=== PATIENT | male | born 1960 ===

== ENCOUNTER 2022-01-24 12:05 | Observation (INO) | payer MEDICARE ==
[2022-01-24] MEDS ORDERED: ASPIRIN 81 MG PO STA (12:24)
--- NOTE | 2022-01-24 12:25 | ED ---
General Adult HPI - General Chief complaint: Chest Pain Stated complaint: chest pain Time Seen by Provider: 01/24/22 12:16 Source: patient, RN notes reviewed Mode of arrival: wheelchair Limitations: no limitations - History of Present Illness Initial comments: Patient is a pleasant 61-year-old male presenting to the emergency department with concerns with chest discomfort. Symptoms have been present for several weeks, worse the past couple of days. Sometimes symptoms are worse with exertion. Patient is starting to have associated dyspnea. No nausea. No diaphoresis. No history of similar symptoms previously. Discomfort feels like tightness currently rated 1/10. At the worst discomfort is 4/10. Patient denies radiation. Patient denies back pain. - Related Data Allergies Allergy/AdvReac Type Severity Reaction Status Date / Time No Known Allergies Allergy Verified 01/24/22 12:12 Review of Systems ROS Statement: Those systems with pertinent positive or pertinent negative responses have been documented in the HPI. ROS Other: All systems not noted in ROS Statement are negative. Constitutional: Denies: fever Eyes: Denies: eye pain ENT: Denies: ear pain Respiratory: Reports: as per HPI. Denies: cough Cardiovascular: Reports: as per HPI, chest pain Endocrine: Denies: fatigue Gastrointestinal: Denies: abdominal pain Genitourinary: Denies: dysuria Musculoskeletal: Denies: back pain Skin: Denies: rash Neurological: Denies: weakness Past Medical History Past Medical History: Diabetes Mellitus, Hypertension Additional Past Medical History / Comment(s): NEUROPATHY History of Any Multi-Drug Resistant Organisms: None Reported Past Surgical History: Hernia Repair Additional Past Surgical History / Comment(s): FOOT/ANKLE SURGERY, TIBIA FIBIA Past Psychological History: No Psychological Hx Reported Smoking Status: Former smoker Past Alcohol Use History: None Reported Past Drug Use History: None Reported General Exam Limitations: no limitations General appearance: alert, in no apparent distress Head exam: Present: normocephalic Eye exam: Present: normal appearance Neck exam: Present: normal inspection Respiratory exam: Present: normal lung sounds bilaterally. Absent: chest wall tenderness Cardiovascular Exam: Present: regular rate, normal rhythm Expanded Peripheral pulses: 2+: Radial (R), Radial (L), Posterior Tibialis (R), Posterior Tibialis (L) GI/Abdominal exam: Present: soft. Absent: tenderness Extremities exam: Present: normal inspection. Absent: pedal edema, calf tenderness Neurological exam: Present: alert Psychiatric exam: Present: normal affect, normal mood Skin exam: Present: normal color Course Vital Signs 01/24/22 12:07 Temperature 98 F Pulse Rate 64 Respiratory 16 Rate Blood Pressure 190/71 O2 Sat by Pulse 99 Oximetry EKG Findings - EKG Comments: EKG Findings:: Sinus rhythm rate 64. [place] 184. QRS 96. QT 420. QTc 429. Left axis. Normal QRS. No acute ST change. Medical Decision Making - Medical Decision Making Patient reevaluated and updated. Case discussed with Dr. Gr, who will admit covering hospital observation - Lab Data Result diagrams: 01/24/22 12:34 01/24/22 12:34 Lab Results 01/24/22 01/24/22 01/24/22 Range/Units 12:34 12:34 12:34 WBC 8.5 (3.8-10.6) k/uL RBC 4.00 L (4.30-5.90) m/uL Hgb 12.0 L (13.0-17.5) gm/dL Hct 34.4 L (39.0-53.0) % MCV 86.1 (80.0-100.0) fL MCH 29.9 (25.0-35.0) pg MCHC 34.7 (31.0-37.0) g/dL RDW 12.9 (11.5-15.5) % Plt Count 195 (150-450) k/uL MPV 9.7 Neutrophils % 58 % Lymphocytes % 32 % Monocytes % 4 % Eosinophils % 2 % Basophils % 1 % Neutrophils # 4.9 (1.3-7.7) k/uL Lymphocytes # 2.7 (1.0-4.8) k/uL Monocytes # 0.4 (0-1.0) k/uL Eosinophils # 0.2 (0-0.7) k/uL Basophils # 0.0 (0-0.2) k/uL Sodium 136 L (137-145) mmol/L Potassium 4.6 (3.5-5.1) mmol/L Chloride 103 (98-107) mmol/L Carbon Dioxide 20 L (22-30) mmol/L Anion Gap 13 mmol/L BUN 13 (9-20) mg/dL Creatinine 0.83 (0.66-1.25) mg/dL Est GFR (CKD-EPI)AfAm >90 (>60 ml/min/1.73 sqM) Est GFR (CKD-EPI)NonAf >90 (>60 ml/min/1.73 sqM) Glucose 246 H (74-99) mg/dL Calcium 9.5 (8.4-10.2) mg/dL Magnesium 1.5 L (1.6-2.3) mg/dL Total Bilirubin 0.4 (0.2-1.3) mg/dL AST 32 (17-59) U/L ALT 39 (4-49) U/L Alkaline Phosphatase 44 (38-126) U/L Troponin I <0.012 (0.000-0.034) ng/mL Total Protein 6.6 (6.3-8.2) g/dL Albumin 4.3 (3.5-5.0) g/dL Amylase 48 (30-110) U/L Lipase 131 (23-300) U/L - Radiology Data Radiology results: image reviewed Disposition Clinical Impression: Chest pain Disposition: ADMITTED IP TO THIS HOSP Is patient prescribed a controlled substance at d/c from ED?: No Referrals: Isidra Ashley MD [Primary Care Provider] - 1-2 days Time of Disposition: 13:23
[2022-01-24 13:02] LABS: ALT 39 U/L (4-49); AST 32 U/L (17-59); African American GFR (CKD) >90 (>60 ml/min/1.73 sqM); Albumin 4.3 g/dL (3.5-5.0); Alkaline Phosphatase 44 U/L (38-126); Amylase 48 U/L (30-110); Anion Gap 13 mmol/L; Blood Urea Nitrogen 13 mg/dL (9-20); Calcium 9.5 mg/dL (8.4-10.2); Carbon Dioxide 20 mmol/L (22-30); Chloride 103 mmol/L (98-107); Glucose 246 mg/dL (74-99); Lipase 131 U/L (23-300); Magnesium 1.5 mg/dL (1.6-2.3); Non-African American GFR(CKD) >90 (>60 ml/min/1.73 sqM); Potassium 4.6 mmol/L (3.5-5.1); Sodium 136 mmol/L (137-145); Total Bilirubin 0.4 mg/dL (0.2-1.3); Total Protein 6.6 g/dL (6.3-8.2)
[2022-01-24 13:03] LABS: Basophils % (A) 1 %; Eosinophils # (A) 0.2 k/uL (0-0.7); Eosinophils % (A) 2 %; HCT 34.4 % (39.0-53.0); Lymphocytes # (A) 2.7 k/uL (1.0-4.8); Lymphocytes % (A) 32 %; MCH 29.9 pg (25.0-35.0); MCHC 34.7 g/dL (31.0-37.0); MCV 86.1 fL (80.0-100.0); Mean Platelet Volume 9.7; Monocytes # (A) 0.4 k/uL (0-1.0); Monocytes % (A) 4 %; Neutrophils # (A) 4.9 k/uL (1.3-7.7); Neutrophils % (A) 58 %; Platelet Count 195 k/uL (150-450); RDW 12.9 % (11.5-15.5); WBC 8.5 k/uL (3.8-10.6)
[2022-01-24] MEDS ORDERED: NITROGLYCERIN SL TABS 0.4 MG TAB SUBLINGUAL PRN (13:19)
[2022-01-24] MEDS ORDERED: NALOXONE 0.4 MG/ML 1 ML VIAL IVP PRN (13:19)
[2022-01-24] MEDS ORDERED: ACETAMINOPHEN TAB 325 MG TAB PO PRN (13:19)
--- NOTE | 2022-01-24 13:23 | XR ---
EXAMINATION TYPE: XR chest 2V DATE OF EXAM: 01/24/2022 COMPARISON: NONE HISTORY: Shortness of breath TECHNIQUE: Frontal and lateral views of the chest are obtained. FINDINGS: Scattered senescent parenchymal changes noted. Hyperinflation compatible with COPD. No evidence for infiltrate. No evidence for atelectasis. Heart size is stable. Mediastinal structures are stable and grossly unremarkable. No evidence for hilar prominence. Degenerative changes dorsal spine. IMPRESSION: 1. No evidence for acute pulmonary disease.
[2022-01-24 13:26] LABS: INR 0.9 (<1.2); Partial Thromboplastin Time 23.2 sec (22.0-30.0); Prothrombin Time 9.8 sec (9.0-12.0)
[2022-01-24] MEDS ORDERED: MAGNESIUM OXIDE 400 MG TAB PO STA (13:34)
--- NOTE | 2022-01-24 14:33 | CT ---
EXAMINATION TYPE: CT angio chest DATE OF EXAM: 01/24/2022 COMPARISON: None HISTORY: PE CT DLP: 634.9 mGycm CONTRAST: CT chest with contrast and 3D reconstruction with MIP imaging is performed with IV Contrast, patient injected with 100 mL of Isovue 370. Contrast-enhanced CT of the chest was performed through the course of the pulmonary arteries with aiden g and mediastinal window settings submitted. 3D reconstruction with MIP imaging was also performed. PULMONARY ARTERIES: The pulmonary arteries and their major tributaries are patent. I do not see claudine dence for sizable filling defect to suggest pulmonary embolic process. LUNGS: The lungs are clear and free of infiltrate. No evidence for atelectasis. No pulmonary nodule or mass is detected. No pleural effusion. MEDIASTINUM: Thoracic aorta is of normal caliber,however, evaluation is limited given timing of the contrast bolus. If there is concern for thoracic aortic pathology consider SOWMYA. Correlate clinicall y . The heart is not enlarged. No evidence for mediastinal mass. No mediastinal lymph nodes greater than 1cm. HILAR STRUCTURES: No evidence for mass. No hilar lymph nodes greater than 1 cm. UPPER ABDOMEN: No significant abnormality is seen. IMPRESSION: 1. No evidence for Pulmonary embolism at this time.
--- NOTE | 2022-01-24 15:41 | P.HPIM ---
History of Present Illness H&P Date: 01/24/22 Chief Complaint: Chest pain 61-year-old man with a history of hypertension, ex-smoker, hyperlipidemia, diabetes type 2 with peripheral neuropathy, family history of heart disease in his father in his early 60s presented for evaluation chest pain. Patient says that the pain is sharp in nature and starts at the bottom of the left side of his chest and radiates upwards towards the top of his chest. It is not particularly worse with exertion or deep breathing, position or food intake. The pain started approximately 1 month ago and happens intermittently, but yesterday had gotten to the point where it was associated with shortness of breath as well. This concerned him and prompted him to come to the emergency room for further evaluation. Patient denies associated fevers, chills, nausea, vomiting, sweats, palpitations, syncope, presyncope, cough, dyspnea, abdominal pain, constipation, diarrhea, dysuria, dyschezia, numbness/weakness of extremities. In the emergency room, patient was afebrile, 190/71, heart rate 64, 99% on room air. Labs show mild anemia to 12.0. Chemistry show mild hyponatremia to 136, mild acidosis to 20. Glucose was elevated 246. Magnesium was low at 1.5. Initial troponin was less than 0.012. Coags were unremarkable. D-dimer is 0. 62. Chest x-ray shows no evidence pulmonary disease. Chest CTA shows no evidence for pulmonary embolism or cardiopulmonary pathology. EKG shows normal sinus rhythm with no evidence of ischemia. All Systems reviewed and pertinent positives and negatives noted in HPI, all other symptoms are negative Gen: in no apparent distress, resting comfortably in bed Eyes: PERRL, no scleral injection or icterus HENT: normocephalic, atraumatic, good hearing acuity, moist mucous membranes Neck: no tracheal deviation, full range of motion Resp: good air exchange, breathing comfortably with no accessory muscle use, no tactile fremitus, clear to auscultation bilaterally CVS: good distal perfusion x 4, no pitting edema, regular rate and rhythm GI: soft, no tenderness to palpation, periumbilical area, ND, no hepatosplenomegaly : no suprapubic tenderness, no CVAT, rodriguez catheter not present MSK: no clubbing, no cyanosis, no noted contractures of extremities Skin: no noted rashes, petechiae; temperature of skin is appropriate Neuro: moving all extremities without signs of weakness, CN II-XII intact Psych: cooperative, euthymic mood, insight and judgment intact Labs and imaging reviewed as above Assessment/plan: Chest pain Hypertensive urgency -Admit to observation, telemetry -Cardiology consult -Echo -Aspirin, statin, beta vikas -TSH, A1c, lipid panel -Trend troponins -EKG, nitro when necessary -Nothing by mouth at midnight for stress test versus angiogram depending on troponins, I will defer this to cardiology -Resume patient's home antihypertensives Hyperlipidemia Diabetes type 2 Peripheral neuropathy -Home medications reviewed and reconciled Patient is full code DVT prophylaxis with early ambulation Past Medical History Past Medical History: Diabetes Mellitus, Hypertension Additional Past Medical History / Comment(s): NEUROPATHY History of Any Multi-Drug Resistant Organisms: None Reported Past Surgical History: Hernia Repair Additional Past Surgical History / Comment(s): FOOT/ANKLE SURGERY, TIBIA FIBIA Past Psychological History: No Psychological Hx Reported Smoking Status: Former smoker Past Alcohol Use History: None Reported Past Drug Use History: None Reported Medications and Allergies Home Medications Medication Instructions Recorded Confirmed Type Aspirin EC [Ecotrin Low Dose] 81 mg PO DAILY 01/24/22 01/24/22 History Cetirizine HCl [Zyrtec] 10 mg PO DAILY 01/24/22 01/24/22 History Enalapril [Vasotec] 5 mg PO DAILY 01/24/22 01/24/22 History Ergocalciferol [Vitamin D2 (1250 1,250 mcg PO WE 01/24/22 01/24/22 History Mcg = 79141 Iu)] Ezetimibe [Zetia] 10 mg PO DAILY 01/24/22 01/24/22 History Famotidine [Pepcid] 20 mg PO DAILY 01/24/22 01/24/22 History Fenofibrate [Lofibra] 160 mg PO DAILY 01/24/22 01/24/22 History HYDROcodone/APAP 10-325MG [[place] 1 tab PO Q6H PRN 01/24/22 01/24/22 History 10-325] Losartan Potassium 100 mg PO DAILY 01/24/22 01/24/22 History Phenylephrine HCl [Sudafed PE] 10 mg PO BID 01/24/22 01/24/22 History Pregabalin [Lyrica] 150 mg PO BID 01/24/22 01/24/22 History Sildenafil Citrate [Viagra] 100 mg PO DAILY PRN 01/24/22 01/24/22 History amLODIPine [Norvasc] 5 mg PO DAILY 01/24/22 01/24/22 History glipiZIDE XL [Glucotrol Xl] 2.5 mg PO DAILY 01/24/22 01/24/22 History guaiFENesin 400 mg PO BID 01/24/22 01/24/22 History metFORMIN HCL [Glucophage] 1,000 mg PO DAILY 01/24/22 01/24/22 History metFORMIN HCL [Glucophage] 500 mg PO HS 01/24/22 01/24/22 History Allergies Allergy/AdvReac Type Severity Reaction Status Date / Time No Known Allergies Allergy Verified 01/24/22 13:30 Physical Exam Osteopathic Statement: *. No significant issues noted on an osteopathic structural exam other than those noted in the History and Physical/Consult. Vitals: Vital Signs Temp Pulse Resp BP Pulse Ox 01/24/22 12:07 98 F 64 16 190/71 99 Intake and Output 01/24/22 01/24/22 01/24/22 06:59 14:59 22:59 Other: Weight 111.13 kg Results CBC & Chem 7: 01/24/22 12:34 01/24/22 12:34 Labs: Abnormal Lab Results - Last 24 Hours (Table) 01/24/22 01/24/22 01/24/22 Range/Units 12:34 12:34 12:34 RBC 4.00 L (4.30-5.90) m/uL Hgb 12.0 L (13.0-17.5) gm/dL Hct 34.4 L (39.0-53.0) % D-Dimer 0.62 H (<0.60) mg/L FEU Sodium 136 L (137-145) mmol/L Carbon Dioxide 20 L (22-30) mmol/L Glucose 246 H (74-99) mg/dL Magnesium 1.5 L (1.6-2.3) mg/dL
[2022-01-24 17:37] LABS: Glucose,Whole Blood 253 mg/dL (70-110)
[2022-01-24] MEDS: INSULIN ASPART (NovoLOG) 100 UNIT/ML VIAL SQ SCH (17:54)
[2022-01-24] MEDS ORDERED: ATORVASTATIN 80 MG TAB PO SCH (21:00)
[2022-01-24] MEDS: METOPROLOL TARTRATE 12.5 MG TAB PO SCH (21:02)
[2022-01-24] MEDS: guaiFENesin 600 MG TABLET.ER PO SCH (21:02)
[2022-01-24] MEDS: PREGABALIN 75 MG CAP PO SCH (21:02)
[2022-01-24] MEDS: HYDROcodone/APAP 10-325MG 1 EACH TAB PO PRN (21:08)
[2022-01-25 08:14] LABS: Glucose,Whole Blood 189 mg/dL (70-110)
[2022-01-25] MEDS ORDERED: ALPRAZolam 0.5 MG TAB PO PRN (08:46)
[2022-01-25] MEDS ORDERED: NITROGLYCERIN SL TABS 0.4 MG TAB SUBLINGUAL PRN (08:46)
[2022-01-25] MEDS ORDERED: ASPIRIN 325 MG TAB PO STA (08:46)
[2022-01-25] MEDS ORDERED: ALPRAZolam 0.25 MG TAB PO PRN (08:46)
[2022-01-25] MEDS ORDERED: ATORVASTATIN 80 MG TAB PO STA (08:46)
[2022-01-25] MEDS: guaiFENesin 600 MG TABLET.ER PO SCH (08:59)
[2022-01-25] MEDS: PREGABALIN 75 MG CAP PO SCH (08:59)
[2022-01-25] MEDS ORDERED: EZETIMIBE 10 MG TAB PO SCH (09:00)
[2022-01-25] MEDS ORDERED: ASPIRIN 81 MG PO SCH (09:00)
[2022-01-25] MEDS ORDERED: LOSARTAN 50 MG TAB PO SCH (09:00)
[2022-01-25] MEDS ORDERED: FENOFIBRATE 160 MG TAB PO SCH (09:00)
[2022-01-25] MEDS ORDERED: SODIUM CHLORIDE 0.9% 1,000 ML in EMPTY BAG 1 BAG IV SCH (09:00)
[2022-01-25] MEDS: METOPROLOL TARTRATE 12.5 MG TAB PO SCH (09:00)
[2022-01-25] MEDS ORDERED: FAMOTIDINE 20 MG TAB PO SCH (09:00)
[2022-01-25] MEDS ORDERED: amLODIPine 5 MG TAB PO SCH (09:00)
[2022-01-25] MEDS: INSULIN ASPART (NovoLOG) 100 UNIT/ML VIAL SQ SCH ×2 (09:06→12:00)
--- NOTE | 2022-01-25 09:09 | P.CRDCN ---
History of Present Illness Consult date: 01/25/22 History of present illness: HISTORY OF PRESENT ILLNESS: This is a 61-year-old male with a past medical history significant for hypertension, hyperlipidemia, diabetes, neuropathy, and former nicotine dependence. 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 We have been asked to see the patient in consultation for chest pain. Patient examined at the bedside. Patient states he has been having chest pain for the past month or so. He states he had other priorities at the time so he did not have it checked out. He states the pain is both with exertion and without exertion. He states the pain will last for about 5 minutes at each episode and then slowly go away. He reports over the past couple days he had pain about 10 times per day. The pain began to radiate down his left arm. He also reports feeling SOB. He states about 20-25 years ago he had a stress test performed for chest pain which apparently was abnormal and he was taken for a cardiac cath. He reports his cath was normal and did not require any stenting. He reports a family history of premature CAD. * EKG reveals sinus mechanism. T wave inversions in inferior leads. * Chest xray negative for acute process * Chest CTA: Negative for pulmonary embolism * Laboratory data: WBC 8.5. Hemoglobin 12.0. Platelet count 195. D-dimer 0.62. Sodium 136. Potassium 4.6. BUN 13. Creatinine 0.83. Troponin negative 3. * Current home cardiac medications include Vasotec 5 mg daily, fenofibrate 160 mg daily, losartan 100 mg daily, amlodipine 5 mg daily, aspirin 81 mg daily REVIEW OF SYSTEMS: At the time of my exam: CONSTITUTIONAL: Denies fever or chills. HEENT: Denies blurred vision, vision changes, or eye pain. Denies hemoptysis CARDIOVASCULAR: Denies chest pain. Denies orthopnea. Denies PND. Denies palpitations RESPIRATORY: Denies shortness of breath. GASTROINTESTINAL: Denies abdominal pain. Denies nausea or vomiting. HEMATOLOGIC: Denies bleeding disorders. GENITOURINARY: Denies any blood in urine. SKIN: Denies pruitis. Denies rash. PHYSICAL EXAM: VITAL SIGNS: Reviewed. GENERAL: Well-developed in no acute distress. HEENT: Head is normocephalic. Pupils are equal, round. Sclerae anicteric. Mucous membranes of the mouth are moist. Neck supple. No JVD or thyromegaly LUNGS: Respirations even and unlabored. Lungs essentially clear to auscultation bilaterally. HEART: Regular rate and rhythm. S1 and S2 heard. ABDOMEN: Soft. Nondistended. Nontender. EXTREMITIES: Normal range of motion. No clubbing or cyanosis. Peripheral pulses intact. No lower extremity edema NEUROLOGIC: Awake and alert. Oriented x 3. ASSESSMENT: Unstable angina Hypertension Hyperlipidemia Diabetes Peripheral neuropathy Former nicotine dependence Family history of premature CAD PLAN: Obtain 2D echo to assess cardiac structure and function Resume home cardiac medications Patient to undergo cardiac cath today with Dr. Odonnell Further recommendations pending patient course Nurse practitioner note has been reviewed by physician. Signing provider agrees with the documented findings, assessment, and plan of care. Past Medical History Past Medical History: Diabetes Mellitus, Hypertension Additional Past Medical History / Comment(s): NEUROPATHY History of Any Multi-Drug Resistant Organisms: None Reported Past Surgical History: Hernia Repair Additional Past Surgical History / Comment(s): FOOT/ANKLE SURGERY, TIBIA FIBIA Past Psychological History: No Psychological Hx Reported Smoking Status: Former smoker Past Alcohol Use History: None Reported Past Drug Use History: None Reported Medications and Allergies Home Medications Medication Instructions Recorded Confirmed Type Aspirin EC [Ecotrin Low Dose] 81 mg PO DAILY 01/24/22 01/24/22 History Cetirizine HCl [Zyrtec] 10 mg PO DAILY 01/24/22 01/24/22 History Enalapril [Vasotec] 5 mg PO DAILY 01/24/22 01/24/22 History Ergocalciferol [Vitamin D2 (1250 1,250 mcg PO WE 01/24/22 01/24/22 History Mcg = 10000 Iu)] Ezetimibe [Zetia] 10 mg PO DAILY 01/24/22 01/24/22 History Famotidine [Pepcid] 20 mg PO DAILY 01/24/22 01/24/22 History Fenofibrate [Lofibra] 160 mg PO DAILY 01/24/22 01/24/22 History HYDROcodone/APAP 10-325MG [[place] 1 tab PO Q6H PRN 01/24/22 01/24/22 History 10-325] Losartan Potassium 100 mg PO DAILY 01/24/22 01/24/22 History Phenylephrine HCl [Sudafed PE] 10 mg PO BID 01/24/22 01/24/22 History Pregabalin [Lyrica] 150 mg PO BID 01/24/22 01/24/22 History Sildenafil Citrate [Viagra] 100 mg PO DAILY PRN 01/24/22 01/24/22 History amLODIPine [Norvasc] 5 mg PO DAILY 01/24/22 01/24/22 History glipiZIDE XL [Glucotrol Xl] 2.5 mg PO DAILY 01/24/22 01/24/22 History guaiFENesin 400 mg PO BID 01/24/22 01/24/22 History metFORMIN HCL [Glucophage] 1,000 mg PO DAILY 01/24/22 01/24/22 History metFORMIN HCL [Glucophage] 500 mg PO HS 01/24/22 01/24/22 History Allergies Allergy/AdvReac Type Severity Reaction Status Date / Time No Known Allergies Allergy Verified 01/24/22 13:30 Physical Exam Vitals: Vital Signs Temp Pulse Resp BP Pulse Ox 01/25/22 05:00 56 L 16 139/68 94 L 01/25/22 04:00 97.9 F 55 L 16 151/79 98 01/24/22 21:01 68 18 146/53 97 01/24/22 17:43 60 18 145/59 98 01/24/22 12:07 98 F 64 16 190/71 99 Results 01/24/22 12:34 01/24/22 12:34 Cardiac Enzymes 01/24/22 01/24/22 01/24/22 Range/Units 12:34 12:34 15:35 AST 32 (17-59) U/L Troponin I <0.012 <0.012 (0.000-0.034) ng/mL 01/24/22 Range/Units 18:18 AST (17-59) U/L Troponin I <0.012 (0.000-0.034) ng/mL Coagulation 01/24/22 Range/Units 12:34 PT 9.8 (9.0-12.0) sec APTT 23.2 (22.0-30.0) sec CBC 01/24/22 Range/Units 12:34 WBC 8.5 (3.8-10.6) k/uL RBC 4.00 L (4.30-5.90) m/uL Hgb 12.0 L (13.0-17.5) gm/dL Hct 34.4 L (39.0-53.0) % Plt Count 195 (150-450) k/uL Comprehensive Metabolic Panel 01/24/22 Range/Units 12:34 Sodium 136 L (137-145) mmol/L Potassium 4.6 (3.5-5.1) mmol/L Chloride 103 (98-107) mmol/L Carbon Dioxide 20 L (22-30) mmol/L BUN 13 (9-20) mg/dL Creatinine 0.83 (0.66-1.25) mg/dL Glucose 246 H (74-99) mg/dL Calcium 9.5 (8.4-10.2) mg/dL AST 32 (17-59) U/L ALT 39 (4-49) U/L Alkaline Phosphatase 44 (38-126) U/L Total Protein 6.6 (6.3-8.2) g/dL Albumin 4.3 (3.5-5.0) g/dL Current Medications Generic Name Dose Route Start Last Admin Trade Name Freq PRN Reason Stop Dose Admin Acetaminophen 650 mg 01/24/22 13:19 Acetaminophen Tab 325 Mg Tab PO Q6HR PRN Mild Pain or Fever > 100.5 Hydrocodone Bitart/Acetaminophen 1 each 01/24/22 15:37 01/24/22 21:08 Hydrocodone/Apap 10-325mg 1 Each Tab PO 1 each Q6H PRN Administration Moderate Pain Amlodipine Besylate 5 mg 01/25/22 09:00 Amlodipine 5 Mg Tab PO DAILY [facility] Aspirin 81 mg 01/25/22 09:00 Aspirin 81 Mg PO DAILY [facility] Atorvastatin Calcium 80 mg 01/24/22 21:00 01/24/22 21:02 Atorvastatin 80 Mg Tab PO 80 mg HS TANA Administration Ezetimibe 10 mg 01/25/22 09:00 Ezetimibe 10 Mg Tab PO DAILY [facility] Ergocalciferol 1,250 mcg 01/30/22 09:00 Ergocalciferol 1,250 Mcg (50,000 Iu) Capsule PO WE [facility] Famotidine 20 mg 01/25/22 09:00 Famotidine 20 Mg Tab PO DAILY [facility] Fenofibrate 160 mg 01/25/22 09:00 Fenofibrate 160 Mg Tab PO DAILY [facility] Guaifenesin 600 mg 01/24/22 21:00 01/24/22 21:02 Guaifenesin 600 Mg Tablet.Er PO 600 mg BID TANA Administration Insulin Aspart 0 unit 01/24/22 17:30 01/24/22 17:54 Insulin Aspart (Novolog) 100 Unit/Ml Vial SQ 100 unit AC-TID TANA Administration Protocol Losartan Potassium 100 mg 01/25/22 09:00 Losartan 50 Mg Tab PO DAILY TANA Metoprolol Tartrate 12.5 mg 01/24/22 21:00 01/24/22 21:02 Metoprolol Tartrate 12.5 Mg Tab PO 12.5 mg BID TANA Administration Naloxone HCl 0.2 mg 01/24/22 13:19 Naloxone 0.4 Mg/Ml 1 Ml Vial IVP Q2M PRN Opioid Reversal Nitroglycerin 0.4 mg 01/24/22 13:19 01/24/22 13:27 Nitroglycerin Sl Tabs 0.4 Mg Tab SUBLINGUAL 0.4 mg Q5M PRN Administration Chest Pain Pregabalin 150 mg 01/24/22 21:00 01/24/22 21:02 Pregabalin 75 Mg Cap PO 150 mg BID TANA Administration 01/24/22 12:34 01/24/22 12:34
[2022-01-25] MEDS: HYDROcodone/APAP 10-325MG 1 EACH TAB PO PRN (11:05)
[2022-01-25 11:36] LABS: Basophils # (A) 0.1 k/uL (0-0.2); Basophils % (A) 1 %; Eosinophils # (A) 0.2 k/uL (0-0.7); Eosinophils % (A) 2 %; HCT 35.9 % (39.0-53.0); HGB 12.1 gm/dL (13.0-17.5); Lymphocytes # (A) 2.4 k/uL (1.0-4.8); Lymphocytes % (A) 32 %; MCHC 33.8 g/dL (31.0-37.0); MCV 88.8 fL (80.0-100.0); Mean Platelet Volume 8.8; Monocytes # (A) 0.4 k/uL (0-1.0); Monocytes % (A) 5 %; Neutrophils # (A) 4.3 k/uL (1.3-7.7); Neutrophils % (A) 58 %; Platelet Count 183 k/uL (150-450); RBC 4.04 m/uL (4.30-5.90); RDW 12.5 % (11.5-15.5); WBC 7.5 k/uL (3.8-10.6)
[2022-01-25 11:50] LABS: African American GFR (CKD) >90 (>60 ml/min/1.73 sqM); Anion Gap 11 mmol/L; Blood Urea Nitrogen 13 mg/dL (9-20); Calcium 9.3 mg/dL (8.4-10.2); Carbon Dioxide 25 mmol/L (22-30); Chloride 103 mmol/L (98-107); Glucose 178 mg/dL (74-99); Magnesium 1.8 mg/dL (1.6-2.3); Non-African American GFR(CKD) 90 (>60 ml/min/1.73 sqM); Potassium 4.8 mmol/L (3.5-5.1); Sodium 139 mmol/L (137-145)
[2022-01-25 12:49] LABS: Glucose,Whole Blood 155 mg/dL (70-110)
[2022-01-25] MEDS ORDERED: VERAPAMIL 2.5 MG/ML 2 ML AMP ONE (12:54)
[2022-01-25] MEDS ORDERED: MIDAZOLAM 2 MG/2 ML VIAL IV ONE ×2 (13:11→13:14)
[2022-01-25] MEDS ORDERED: LIDOCAINE 1% INJ 10MG/ML (30 ML VIAL-PF) SQ ONE (13:11)
[2022-01-25] MEDS: VERAPAMIL SYRINGE (5 MG/10 ML) INTRAARTER ONE ×2 (13:12→13:26)
[2022-01-25] MEDS ORDERED: HEPARIN SODIUM 1,000 UN/ML (10ML VL) IV ONE (13:14)
[2022-01-25] MEDS ORDERED: HEPARIN SODIUM 1,000 UN/ML (10ML VL) ONE (13:14)
[2022-01-25] MEDS ORDERED: IV FLUID CONTINUATION 1,000 ML IV ONE (13:17)
[2022-01-25] MEDS ORDERED: IOPAMIDOL-370 125ML BTL INJ ONE (13:26)
[2022-01-25] MEDS ORDERED: RX INFO: IV CONTRAST WAS GIVEN 1 EACH MISC MISCELLANE PRN (13:33)
[2022-01-25] MEDS ORDERED: SODIUM CHLORIDE 0.9% 1,000 ML IV SCH (13:45)
[2022-01-25 14:12] VITALS: TEMP 97.9
--- NOTE | 2022-01-25 14:20 | P.DS ---
Providers Date of admission: 01/24/22 13:19 Expected date of discharge: 01/25/22 Attending physician: Pravin Paiz MD Consults: 01/24/22 13:19 Consult Physician Routine Consulting Provider: [facility] Consult Reason/Comments: Chest Pain Do you want consulting provider notified?: Yes Primary care physician: Isidra Ashley [facility] Course: Chest pain Hypertensive urgency Hyperlipidemia Diabetes type 2 Peripheral neuropathy 61-year-old man with a history of hypertension, ex-smoker, hyperlipidemia, diabetes type 2 with peripheral neuropathy, family history of heart disease in his father in his early 60s presented for evaluation chest pain. In the emergency room, patient was afebrile, 190/71, heart rate 64, 99% on room air. Labs show mild anemia to 12.0. Chemistry show mild hyponatremia to 136, mild acidosis to 20. Glucose was elevated 246. Magnesium was low at 1.5. Initial troponin was less than 0.012. Coags were unremarkable. D-dimer is 0.62. Chest x-ray shows no evidence pulmonary disease. Chest CTA shows no evidence for pulmonary embolism or cardiopulmonary pathology. EKG shows normal sinus rhythm with no evidence of ischemia. Patient seen by cardiology and underwent left heart catheterization due to numerous risk factors and suspected unstable angina. Patient underwent a right radial approach, and was noted to have clean coronary arteries. Patient was returned to his observation room where he underwent echocardiogram which is pending at the time of my discharge summary. Patient was subsequently deemed stable for discharge. On discharge medication reconciliation, his amlodipine was increased for increased blood pressures while in the hospital and he was prescribed atorvastatin per ASCVD guidelines. Patient will follow-up with primary care. Notably, at the time of the writing of this discharge summary and placement of discharge order, patient still required deflation of TR banding of right wrist. Provided no complications, patient will be discharged home. Gen: in no apparent distress, resting comfortably in bed Eyes: PERRL, no scleral injection or icterus HENT: normocephalic, atraumatic, good hearing acuity, moist mucous membranes Neck: no tracheal deviation, full range of motion Resp: good air exchange, breathing comfortably with no accessory muscle use, no tactile fremitus, clear to auscultation bilaterally CVS: good distal perfusion x 4, no pitting edema, regular rate and rhythm GI: soft, no tenderness to palpation, periumbilical area, ND, no hepatosplenomegaly : no suprapubic tenderness, no CVAT, rodriguez catheter not present MSK: no clubbing, no cyanosis, no noted contractures of extremities Skin: no noted rashes, petechiae; temperature of skin is appropriate Neuro: moving all extremities without signs of weakness, CN II-XII intact Psych: cooperative, euthymic mood, insight and judgment intact Patient Condition at Discharge: Good Plan - Discharge Summary New Discharge Prescriptions: New Atorvastatin [Lipitor] 40 mg PO HS #30 tab Acetaminophen Tab [Tylenol] 650 mg PO Q6HR PRN tab PRN Reason: Mild Pain Or Fever > 100.5 Continue Cetirizine HCl [Zyrtec] 10 mg PO DAILY Ergocalciferol [Vitamin D2 (1250 Mcg = 30543 Iu)] 1,250 mcg PO WE HYDROcodone/APAP 10-325MG [[place] 10-325] 1 tab PO Q6H PRN PRN Reason: Pain metFORMIN HCL [Glucophage] 500 mg PO HS metFORMIN HCL [Glucophage] 1,000 mg PO DAILY Sildenafil Citrate [Viagra] 100 mg PO DAILY PRN PRN Reason: e.d. Aspirin EC [Ecotrin Low Dose] 81 mg PO DAILY Ezetimibe [Zetia] 10 mg PO DAILY Famotidine [Pepcid] 20 mg PO DAILY Fenofibrate [Lofibra] 160 mg PO DAILY glipiZIDE XL [Glucotrol XL] 2.5 mg PO DAILY guaiFENesin 400 mg PO BID Losartan Potassium 100 mg PO DAILY Pregabalin [Lyrica] 150 mg PO BID Changed amLODIPine [Norvasc] 10 mg PO DAILY #60 tab Discontinued Enalapril [Vasotec] 5 mg PO DAILY Phenylephrine HCl [Sudafed PE] 10 mg PO BID Discharge Medication List Aspirin EC [Ecotrin Low Dose] 81 mg PO DAILY 01/24/22 [History] Cetirizine HCl [Zyrtec] 10 mg PO DAILY 01/24/22 [History] Ergocalciferol [Vitamin D2 (1250 Mcg = 85000 Iu)] 1,250 mcg PO WE 01/24/22 [History] Ezetimibe [Zetia] 10 mg PO DAILY 01/24/22 [History] Famotidine [Pepcid] 20 mg PO DAILY 01/24/22 [History] Fenofibrate [Lofibra] 160 mg PO DAILY 01/24/22 [History] HYDROcodone/APAP 10-325MG [[place] 10-325] 1 tab PO Q6H PRN 01/24/22 [History] Losartan Potassium 100 mg PO DAILY 01/24/22 [History] Pregabalin [Lyrica] 150 mg PO BID 01/24/22 [History] Sildenafil Citrate [Viagra] 100 mg PO DAILY PRN 01/24/22 [History] glipiZIDE XL [Glucotrol XL] 2.5 mg PO DAILY 01/24/22 [History] guaiFENesin 400 mg PO BID 01/24/22 [History] metFORMIN HCL [Glucophage] 1,000 mg PO DAILY 01/24/22 [History] metFORMIN HCL [Glucophage] 500 mg PO HS 01/24/22 [History] Acetaminophen Tab [Tylenol] 650 mg PO Q6HR PRN tab 01/25/22 [Rx] Atorvastatin [Lipitor] 40 mg PO HS #30 tab 01/25/22 [Rx] amLODIPine [Norvasc] 10 mg PO DAILY #60 tab 01/25/22 [Rx] Follow up Appointment(s)/Referral(s): Isidra Ashley MD [Primary Care Provider] - 1-2 days Discharge Disposition: HOME SELF-CARE
[2022-01-25 17:21] VITALS: BP 142/71; PULSE 59; RESP 18
--- NOTE | 2022-01-25 17:53 | CA ---
Transthoracic Echo Report Name: Uriel Kothari Age: 61 Gender: M : 1960 Exam Date: 01/25/2022 13:54 Exam Location: [place] [facility] Ht (in): 72 Wt (lb): 245 Ordering Physician: Pravin Paiz MD Attending/Referring Phys: Media Supervisor Chiara Butler RDCS Procedure CPT: Indications: Chest Pain Cardiac Hx: Technical Quality: Fair Contrast 1: Total Dose (mL): Contrast 2: Total Dose (mL): MEASUREMENTS (Male / Female) Normal Values 2D ECHO LV Diastolic Diameter PLAX 3.9 cm 4.2 - 5.9 / 3.9 - 5.3 cm LV Systolic Diameter PLAX 2.9 cm IVS Diastolic Thickness 1.6 cm 0.6 - 1.0 / 0.6 - 0.9 cm LVPW Diastolic Thickness 1.1 cm 0.6 - 1.0 / 0.6 - 0.9 cm LV Relative Wall Thickness 0.7 RV Internal Dim ED PLAX 2.9 cm LA Volume 44.9 cm??? 18 - 58 / 22 - 52 cm??? M-MODE Aortic Root Diameter MM 3.0 cm LA Systolic Diameter MM 4.1 cm LA Ao Ratio MM 1.4 AV Cusp Separation MM 1.7 cm DOPPLER AV Peak Velocity 99.9 cm/s AV Peak Gradient 4.0 mmHg MV Area PHT 2.1 cm??? Mitral E Point Velocity 84.3 cm/s Mitral A Point Velocity 59.2 cm/s Mitral E to A Ratio 1.4 MV Deceleration Time 354.8 ms MV E' Velocity 8.1 cm/s Mitral E to MV E' Ratio 10.4 TR Peak Velocity 125.8 cm/s TR Peak Gradient 6.3 mmHg Right Ventricular Systolic Press 11.3 mmHg FINDINGS Left Ventricle Moderately increased left ventricular wall thickness. Mildly impaired left ventricular systolic function with no obvious regional wall motion abnormalities. Left ventricular ejection fraction is estimated at 45-50% Right Ventricle Normal right ventricular size and function. Right Atrium Normal right atrial size. Left Atrium Normal left atrial size. No evidence for an atrial septal defect. Mitral Valve Structurally normal mitral valve. No evidence for mitral valve prolapse. No mitral stenosis. Trace mitral regurgitation. Mild mitral annular calcification. Aortic Valve Trileaflet aortic valve. Aortic valve sclerosis. No aortic stenosis. No aortic regurgitation. Tricuspid Valve Structurally normal tricuspid valve. Mild tricuspid regurgitation. Pulmonic Valve Trace pulmonic regurgitation. Pericardium No pericardial effusion. Aorta Normal size aortic root and proximal ascending aorta. CONCLUSIONS Mildly impaired LV function was EF between 45-50% Previewed by: Dr. Chas Odonnell MD (Electronically Signed) Final Date: 25 January 2022 17:53
--- NOTE | 2022-01-25 18:22 | P.PCN ---
Date of Procedure: 01/25/22 Operative Findings: CARDIAC CATHETERIZATION PERFORMING PHYSICIAN: Chas Odonnell MD, RPVI PROCEDURE PERFORMED: 1. Selective right and left coronary angiogram 2. Left heart catheterization INDICATION: This is a 61-year-old gentleman with diabetes and hypertension and dyslipidemia who presented to the hospital with a chest discomfort episodes concerning for unstable angina. In the light of that heart catheterization was advised COMPLICATION: None APPROACH: Right radial artery LEVEL OF SEDATION: Moderate with a sedation length of 15 minutes PROCEDURE DESCRIPTION: After obtaining an informed consent, the patient was brought to cardiac cathead operator. Local anesthesia was performed using lidocaine subcutaneously. The right radial artery was cannulated using Seldinger technique, the guidewire passed easily, following that we advanced a 5-Nepalese sheath dilator assembly, the wire and dilator were removed and sheath was flushed. Following that, 2 mg of verapamil along with 5000 unit heparin were given. Selective right and left coronary angiogram using a 6-Nepalese JR4 and JL 3.5 catheters. Following that we did left heart catheterization using 6-Nepalese pigtail catheter. The procedure was completed there was no complication. SELECTIVE CORONARY ANGIOGRAM: The right coronary artery: Is a large caliber vessel and a dominant vessel. The RCA has mild disease only. Distally bifurcates into PDA and PLV branches both appeared to be angiographically normal Left main: Is angiographically normal. Bifurcates into LCx and LAD The left circumflex: Is a large caliber vessel and nondominant vessel. The LCx has mild disease only. Gives rises into a large OM which appeared to be angiographically normal. The left anterior descending artery: The proximal LAD has mild disease only. The mid and distal LAD appears to be angiographically normal. The LAD does not reach the apex. HEMODYNAMICS: The LVEDP was about 20 mmHg was no significant gradient across aortic valve CONCLUSION: 1. Mild nonobstructive coronary artery disease 2. Mildly elevated left-sided filling pressure POSTPROCEDURE MANAGEMENT: Medical treatment and follow-up with the patient
[2022-01-25 21:59] LABS: Chol/HDL Ratio 5.76 Ratio; LDL Cholesterol,Calculated 110.8 mg/dL (0.0-131.0)
[2022-01-26] MEDS ORDERED: HEPARIN SODIUM,PORCINE 10,000 UNIT in SODIUM CHLORIDE 0.9% 1,000 ML IRRIGATION PRN (07:00)
[2022-01-26] MEDS ORDERED: HEPARIN SODIUM,PORCINE 2,500 UNIT in SODIUM CHLORIDE 0.9% 250 ML IRRIGATION PRN (07:00)
[2022-01-30] MEDS ORDERED: ERGOCALCIFEROL 1,250 MCG (50,000 IU) CAPSULE PO SCH (09:00)
== END 2022-01-25 17:45 | disposition home or self-care (01) ==
LOC: EC 12:05 → 6NMEDSUR 13:19
PROVIDERS: ADMIT Internal Medicine; ATTEND Internal Medicine
DX: I25.110 Atherosclerotic heart disease of native coronary artery with unstable angina pectoris (principal); I16.0 Hypertensive urgency; I10 Essential (primary) hypertension; E78.5 Hyperlipidemia, unspecified; E11.42 Type 2 diabetes mellitus with diabetic polyneuropathy; D64.9 Anemia, unspecified; E87.1 Hypo-osmolality and hyponatremia; E87.2 Acidosis; Z87.891 Personal history of nicotine dependence; Z79.82 Long term (current) use of aspirin; Z79.84 Long term (current) use of oral hypoglycemic drugs; Z79.899 Other long term (current) drug therapy; Z82.49 Family history of ischemic heart disease and other diseases of the circulatory system
CPT/HCPCS: 96372 ×2; 99285; 36415; 93005; 93306; 93458; 85379; 80061; 80053; 80048; 84443; 82150; 83690; 83735 ×2; 84484; 85025 ×2; 85610; 85730; 83036; 71046; 71275; G0378 ×2; J2250; J2001; J1644; Q9967 ×2

== ENCOUNTER → 2024-11-03 | Day surgery (SDC) | payer MEDICARE ==
[2024-11-03] MEDS: EMPTY BAG 1 BAG with SODIUM CHLORIDE 0.9% 1,000 ML IV ONE (06:13)
[2024-11-03] MEDS: IV FLUID CONTINUATION 1,000 ML IV ONE (06:13)
[2024-11-03 06:25] LABS: Glucose,Whole Blood 134 mg/dL (70-110)
[2024-11-03 06:25] LABS: Basophils # (A) 0.07 10*3/uL (0.00-0.10); Basophils % (A) 1.0 %; Eosinophils # (A) 0.14 10*3/uL (0.04-0.35); Eosinophils % (A) 2.0 %; HCT 31.1 % (39.6-50.0); HGB 10.7 g/dL (13.0-17.0); Lymphocytes # (A) 2.04 10*3/uL (0.90-5.00); Lymphocytes % (A) 29.5 %; MCH 30.3 pg (27.0-32.0); MCHC 34.4 g/dL (32.0-37.0); MCV 88.1 fL (80.0-97.0); Monocytes # (A) 0.45 10*3/uL (0.20-1.00); Monocytes % (A) 6.5 %; Neutrophils # (A) 4.19 10*3/uL (1.80-7.70); Neutrophils % (A) 60.7 %; Platelet Count 217 10*3/uL (140-440); RBC 3.53 10*6/uL (4.40-5.60); RDW 12.4 % (11.5-14.5); WBC 6.91 10*3/uL (4.50-10.00)
[2024-11-03 06:38] VITALS: RESP 14; TEMP 97.9
[2024-11-03 06:47] LABS: African American GFR (CKD) 73 (>60 ml/min/1.73 sqM); Anion Gap 7 mmol/L; Blood Urea Nitrogen 19 mg/dL (9-20); Calcium 9.0 mg/dL (8.4-10.2); Carbon Dioxide 25 mmol/L (22-30); Chloride 107 mmol/L (98-107); Glucose 126 mg/dL (74-99); Non-African American GFR(CKD) 63 (>60 ml/min/1.73 sqM); Sodium 139 mmol/L (137-145)
[2024-11-03 07:06] LABS: Potassium 4.6 mmol/L (3.5-5.1)
[2024-11-03] MEDS: fentaNYL (PF) 50 MCG/ML 2 ML AMP IVP ONE (07:42)
[2024-11-03] MEDS: MIDAZOLAM 2 MG/2 ML VIAL IVP ONE (07:42)
[2024-11-03] MEDS: LIDOCAINE 1% INJ 10MG/ML (20 ML MDV) SQ ONE (07:44)
[2024-11-03] MEDS: NITROGLYCERIN 1000MCG/10ML SYRINGE INTRAARTER ONE (07:46)
[2024-11-03] MEDS: VERAPAMIL 2.5 MG/ML 2 ML AMP INTRAARTER ONE (07:46)
[2024-11-03] MEDS: HEPARIN SODIUM 1,000 UN/ML (10ML VL) MISCELLANE ONE (07:46)
[2024-11-03] MEDS: IOPAMIDOL-370 100ML BTL INJ ONE (08:04)
--- NOTE | 2024-11-03 08:16 | P.OP ---
Date of Procedure: 11/03/24 Description of Procedure: Preoperative diagnosis: Norbert Norbert 3 peripheral arterial disease right lower extremity Postoperative diagnosis: Same Procedure: Ultrasound-guided left radial artery access Placement of catheter in infrarenal abdominal aorta, selective second order, from radial approach Aortogram with bilateral lower extremity runoffs Selective third order right lower extremity angiogram via common femoral artery Moderate conscious sedation with personal monitoring certified RN administration and personal hemodynamic monitoring for 19 minutes Surgeon: Mariella Kingston D.O. EBL: Less than 5 cc IV fluids: See records Urine output: Not measured Drains: None Complications: None immediately apparent Condition: Stable to recovery Operative indication and findings: Patient is 64 a-year-old with peripheral vascular disease. On workup and evaluation was found to have abnormal ABIs pro mpting recommendations for an angiogram. Risks and benefits including but not limited to bleeding, infection, injury to the vessel, stroke, cardiopulmonary risks and ischemic changes to the extremities were discussed. They seemingly understood this willing to proceed. Procedure in detail: Patient was taken to the special suite and placed in supine position. The left upper extremity was prepped and draped in usual sterile fashion. A preprocedural timeout was performed, all parties were in agreement. Using the ultrasound, the radial artery was identified. The skin overlying was anesthetized with 1% lidocaine plain. The artery was patent without significant calcific disease and a permanent image was stored. Under direct visualization, the artery was accessed and Seldinger technique was used to place a 5 slender sheath. Catheters and wires were then used to selectively place a catheter across the subclavian, into the aortic arch and then selectively in the descending thoracic aorta and down into the abdominal aorta. Aortogram was performed. Catheter was then advanced to the level of the iliac bifurcation. A bilateral lower extremity step-off was performed. The right lower extremity was then selected and the catheter was advanced to the level of the common femoral artery. After satisfactory images, catheters and wires were removed. The sheath was removed and a TR band was placed. Angiographic interpretation: The aorta appears normal in course and caliber. Visualized portions of the celiac and superior mesenteric artery are patent without significant disease. The renal arteries appear patent without significant disease. Multiple visualized lumbars. On the right, the common iliac has an area of significant greater than 60% stenosis. The remainder of the common iliac appears patent. The internal and external iliac appear patent. The common femoral artery appears patent. The profunda femoris on the right is robust with multiple large collateral vessels. There is visualization of about 3 to 4 cm of the superficial femoral artery which subsequently occludes and reconstitutes the level of the adductor canal the popliteal artery appears patent without significant disease. The anterior tibial, tibioperoneal trunk, posterior tibial and peroneal artery appear patent at the level of the mid calf. On the left, the common iliac, internal and external iliac appear patent without significant disease. The common femoral artery is obscured by the prosthetic however there is brisk flow through this. The visualized portion of the common femoral, superficial femoral and profunda on the left appear patent without significant disease. The popliteal appears patent without significant disease. The anterior tibial and tibioperoneal trunk are patent. Visualization is difficult beyond this due to overlying the bone and no further visualization is obtained down the left Patient will need to come back for a right lower extremity intervention with likely right common iliac stent as well as attempted right superficial femoral artery atherectomy plus or minus stenting for attempted revascularization Plan - Discharge Summary Discharge Rx Participant: No New Discharge Prescriptions: No Action Cetirizine HCl [Zyrtec] 10 mg PO DAILY Ergocalciferol [Vitamin D2 (1250 Mcg = 93811 Iu)] 1,250 mcg PO WE HYDROcodone/APAP 10-325MG [[place] 10-325] 1 tab PO Q6H PRN PRN Reason: Pain Sildenafil Citrate [Viagra] 100 mg PO DAILY PRN PRN Reason: e.d. Atorvastatin [Lipitor] 40 mg PO HS #30 tab amLODIPine [Norvasc] 5 mg PO DAILY Omeprazole [PriLOSEC] 20 mg PO AC-BRKFST Tamsulosin [Flomax] 0.4 mg PO DAILY Ezetimibe [Zetia] 10 mg PO DAILY Fenofibrate [Lofibra] 160 mg PO DAILY Pregabalin [Lyrica] 200 mg PO BID Enalapril [Vasotec] 20 mg PO DAILY Tirzepatide [Mounjaro] 12.5 mg SQ Q7D Discharge Medication List Cetirizine HCl [Zyrtec] 10 mg PO DAILY 01/24/22 [History] Ergocalciferol [Vitamin D2 (1250 Mcg = 32636 Iu)] 1,250 mcg PO WE 01/24/22 [History] Ezetimibe [Zetia] 10 mg PO DAILY 01/24/22 [History] Fenofibrate [Lofibra] 160 mg PO DAILY 01/24/22 [History] HYDROcodone/APAP 10-325MG [[place] 10-325] 1 tab PO Q6H PRN 01/24/22 [History] Pregabalin [Lyrica] 200 mg PO BID 01/24/22 [History] Sildenafil Citrate [Viagra] 100 mg PO DAILY PRN 01/24/22 [History] Atorvastatin [Lipitor] 40 mg PO HS #30 tab 01/25/22 [Rx] Enalapril [Vasotec] 20 mg PO DAILY 11/02/24 [History] Omeprazole [PriLOSEC] 20 mg PO AC-BRKFST 11/02/24 [History] Tamsulosin [Flomax] 0.4 mg PO DAILY 11/02/24 [History] Tirzepatide [Mounjaro] 12.5 mg SQ Q7D 11/02/24 [History] amLODIPine [Norvasc] 5 mg PO DAILY 11/02/24 [History]
--- NOTE | 2024-11-03 09:22 | IR ---
EXAMINATION TYPE: IR angio abdominal w runoff DATE OF EXAM: 11/03/2024 8:31 AM COMPARISON: Pre Operative Images if available both CT/MRI or plain film CLINICAL INDICATION: Male, 64 years old with history of RIGHT LEG PAIN, 2.6MIN/ 48.9DAP, LEFT RADIAL TR WITH 12CC; TECHNIQUE: IR angio abdominal w runoff, multiple fluoroscopic images provided for procedure. DAP: 48.9 mGym2 Gycm2 uGym2 cGycm2 or equivalent. FINDINGS: IMPRESSION: 1. Report was generated for administrative purposes only. 2. Please see the operative/procedural note for further details. [facility], , 11/03/2024 9:20 AM
[2024-11-03 10:22] VITALS: BP 125/60; PULSE 70
== END | disposition home or self-care (01) ==
LOC: CATHCVL 05:48
PROVIDERS: ATTEND Surgery
DX: I70.201 Unspecified atherosclerosis of native arteries of extremities, right leg (principal)
CPT/HCPCS: 36246; 75625; 75716; 80048; 85025; C1769 ×2; C1894; J2250; J2003; J3010; J1644; Q9967; J2305; 36247